=== PATIENT | female | born 1965 | race Caucasian/White ===

== ENCOUNTER → 2018-06-19 | Outpatient (CLI) | payer BC ==
--- NOTE | 2018-06-21 07:23 | MM ---
Reason for exam: screening (asymptomatic). Last mammogram was performed 3 years ago. History: Patient history of other cancer. Took hormonal contraceptives for 1 year beginning at age 21. Physical Findings: A clinical breast exam by your physician is recommended on an annual basis and results should be correlated with mammographic findings. MG 3D Screening Mammo W/Cad Bilateral CC and MLO view(s) were taken. Prior study comparison: June 24, 2015, bilateral MG screening mammo w CAD. February 05, 2014, bilateral digital screening mammo w/CAD. The breast tissue is heterogeneously dense. This may lower the sensitivity of mammography. 1.5 circumscribed mass 3 o'clock left breast is new. Otherwise, no significant change. ASSESSMENT: Incomplete: need additional imaging evaluation, BI-RAD 0 RECOMMENDATION: Ultrasound of the left breast. [facility] will attempt to contact patient to return for ultrasound.
== END | disposition home or self-care (01) ==
LOC: RADMAMWWP 15:03
PROVIDERS: ATTEND Obstetrics & Gynecology
DX: Z12.31 Encounter for screening mammogram for malignant neoplasm of breast (principal)
CPT/HCPCS: 77063; 77067

== ENCOUNTER → 2018-06-28 | Outpatient (CLI) | payer BC ==
--- NOTE | 2018-06-29 11:17 | USB ---
History: Patient history of other cancer. Took hormonal contraceptives for 1 year beginning at age 21. Physical Findings: Nurse Summary: Left breast palpable 1 x 1.5 cm at 3 o'clock. US Breast Workup Limited LT Technologist: Pura Murillo RT (R)(M) Left limited breast ultrasound including focal area of concern, retroareolar and axilla demonstrates a 13 x 7 x 13 mm oval cystic lesion at 3 o'clock, a 5 mm oval cystic lesion at 1 o'clock. These results were verbally communicated with the patient and result sheet given to the patient on 06/28/18. ASSESSMENT: Benign, BI-RAD 2 RECOMMENDATION: Routine screening mammogram of both breasts.
== END | disposition home or self-care (01) ==
LOC: RADUSWWP 14:30
PROVIDERS: ATTEND Obstetrics & Gynecology
DX: R92.8 Other abnormal and inconclusive findings on diagnostic imaging of breast (principal)

== ENCOUNTER → 2020-09-14 | Outpatient (CLI) | payer BC ==
--- NOTE | 2020-09-16 12:13 | MM ---
Reason for exam: screening (asymptomatic). Last mammogram was performed 2 years and 3 months ago. History: Patient is postmenopausal and history of other cancer. Took hormonal contraceptives for 1 year beginning at age 21. Physical Findings: A clinical breast exam by your physician is recommended on an annual basis and results should be correlated with mammographic findings. MG 3D Screening Mammo W/Cad Bilateral CC and MLO view(s) were taken. Prior study comparison: June 19, 2018, bilateral MG 3d screening mammo w/cad. June 24, 2015, bilateral MG screening mammo w CAD. The breast tissue is heterogeneously dense. This may lower the sensitivity of mammography. No significant changes when compared with prior studies. ASSESSMENT: Benign, BI-RAD 2 RECOMMENDATION: Routine screening mammogram of both breasts in 1 year.
== END | disposition home or self-care (01) ==
LOC: RADMAMWWP 16:34
PROVIDERS: ATTEND Obstetrics & Gynecology
DX: Z12.31 Encounter for screening mammogram for malignant neoplasm of breast (principal)
CPT/HCPCS: 77063; 77067